=== PATIENT | female | born 1955 | race African-American/Black ===

== ENCOUNTER → 2018-05-01 | Outpatient (CLI) | payer OTHER ==
[2016-07-19 11:00] VITALS: BP 143/72
[~2018-05-01] MED LIST: ASPI-630 PO; ESTR1TAB15 PO; LOSA1TAB19 PO; METO-239 PO; PITA2TAB2 PO
--- NOTE | 2018-05-01 10:06 | KCIC ---
ABDOMEN COMPLETE: 05/01/2018 9:00 AM Indication: 62 years old Female. Liver lesion on prior ultrasound. Comparison: None. FINDINGS: Sonographic evaluation of the abdomen was performed utilizing grayscale and color Doppler. Liver: There is a hyperechoic mass identified in the posterior right hepatic lobe measuring 5.5 x 6.0 x 7.3 cm. Findings correspond with larger lesion identified on prior MRI and most favor a hepatic hemangioma. Smaller hepatic hemangioma is not definitively visualized by ultrasound. No intrahepatic or extra hepatic biliary ductal dilatation is identified. The right hepatic lobe measures 5.3 cm. Biliary system: CBD measures 2.4 mm. There is no intrahepatic or extrahepatic biliary dilatation. Gallbladder: No stones, wall thickening or pericholecystic fluid. Sonographic Matthews sign: Negative Pancreas: Visualized head and uncinate process are unremarkable. Body and tail are not visualized. Spleen: 7.3 cm. Right kidney: 9.8 x 4.6 x 3.9 cm. No hydronephrosis. Normal echotexture without focal mass or renal calculus. Left kidney: 10.2 x 4.7 x 4.7 cm. No hydronephrosis. Normal echotexture without focal mass or renal calculus. Abdominal aorta and IVC: Visualized portions unremarkable. Free fluid:None. IMPRESSION: Stable right hepatic lobe mass with imaging characteristics most suggestive of a hepatic hemangioma measuring 5.5 x 6.0 x 7.3 cm. Previously seen small hemangioma is not visualized. Electronically signed by: Nereyda Villareal MD (05/01/2018 10:01 AM) [id number]
== END | disposition home or self-care (01) ==
LOC: KCIC US 08:40
PROVIDERS: ATTEND Family Medicine
DX: R16.0 Hepatomegaly, not elsewhere classified (principal)
CPT/HCPCS: 76700